=== PATIENT | female | born 2000 | race Caucasian/White ===

== ENCOUNTER 2024-07-09 23:34 | Emergency (ER) | payer BC ==
[~2024-07-09] VITALS: Ht 149.9 cm; Wt 77.3 kg
[2024-07-09 23:41] VITALS: BP 123/79
[2024-07-09] MEDS ORDERED: ABILIFY5 MG (23:54)
[2024-07-09] MEDS ORDERED: ESCITALOPRAM20 MG PO (23:54)
[2024-07-09] MEDS ORDERED: NP THYROID60 MG PO (23:54)
[2024-07-10 00:46] LABS: URINE APPEARANCE SLIGHTLY CLOUDY (CLEAR); URINE COLOR YELLOW (YELLOW)
[2024-07-10 00:47] LABS: PH-URINE 6.5 (5.0 - 8.0); URINE BILIRUBIN NEGATIVE (NEGATIVE); URINE BLOOD NEGATIVE (NEGATIVE); URINE GLUCOSE NEGATIVE (NEGATIVE); URINE KETONE NEGATIVE (NEGATIVE); URINE LEUKOCYTE ESTERASE NEGATIVE (NEGATIVE); URINE NITRATE NEGATIVE (NEGATIVE); URINE PROTEIN(semi-quant) NEGATIVE (NEGATIVE)
[2024-07-10] MEDS ORDERED: DOXYCYCLINE HY100 M5 PO (01:01)
[2024-07-10] MEDS ORDERED: METRONIDAZOLE500 M1 PO (01:02)
== END 2024-07-10 01:20 | disposition home or self-care (01) ==
LOC: ED 23:34
PROVIDERS: Nurse Practitioner
DX: N73.9 Female pelvic inflammatory disease, unspecified (principal); Z91.040 Latex allergy status; Z88.1 Allergy status to other antibiotic agents
CPT/HCPCS: J0696